=== PATIENT | male | born 1955 | race Caucasian/White ===

== ENCOUNTER 2016-07-08 07:54 | Emergency (ER) | payer OTHER ==
--- NOTE | 2016-07-11 09:05 | ER ---
ADMIT: 07/08/2016 RM/LOC: ER [facility] MR#: [id number] [address] [id number] FLORES DIMITRI D [address] [place] [address] Emergency Room Report SEX: M AGE: 61 : 1955 DATE: 07/08/2016 TIME: 0754 hours Please refer to my T-sheet for complete H and P. HISTORY OF PRESENT ILLNESS: Briefly, the patient is a 61-year-old, who was out in the heat all day yesterday, started at 9 in the morning worked till 7 at night, and then he got up this morning went and worked out. He did drink a protein drink, but had not been drinking enough fluids. He feels lightheaded, dizzy, just kind of not well, and weak. PHYSICAL EXAMINATION: VITAL SIGNS: Blood pressure 125/77, pulse 51, respirations 12, temp 95.7, saturating 100%. GENERAL: No acute distress. HEENT: Grossly normal. LUNGS: Clear. HEART: Regular but bradycardic. ABDOMEN: Soft. NEUROLOGIC: Alert and oriented. Nonfocal. EMERGENCY DEPARTMENT COURSE: He was given a liter normal saline bolus, Zofran 4 IV. CBC normal, chemistries normal except glucose 161. His CK is 117. Troponin negative. TSH is normal. EKG was sinus rhythm, although bradycardic, rate 40, no changes. We kept him on the monitor here, the lowest his pulse goes around 43, it is normally around 50. He does workout every day. He has been very healthy. I suspect that is from this as he is feeling much better after a liter of fluids. ASSESSMENT: 1. Heat exhaustion. 2. Dehydration. 3. Bradycardia, most likely secondary to his physical fitness. PLAN: Fluids. Return if worse. Follow up with [facility] next week if not better. Henry Lopez MD/ nandini JOB #: [id number] CC: Henry Lopez MD, Attending Physician Herson Peace MD, Family Physician
== END 2016-07-08 09:55 | disposition home or self-care (01) ==
LOC: ER 07:54
DX: T67.5XXA Heat exhaustion, unspecified, initial encounter (principal); E86.0 Dehydration; R00.1 Bradycardia, unspecified; X30.XXXA Exposure to excessive natural heat, initial encounter